=== PATIENT | female | born 1985 | race Two or more races ===

== ENCOUNTER 2022-03-13 17:28 | Emergency (ER) | payer OTHER ==
[~2022-03-13] VITALS: Ht 162.6 cm; Wt 139.3 kg
[2022-03-13] MEDS ORDERED: GLIPIZIDE XL2.5 MG PO (17:38)
== END 2022-03-13 22:00 | disposition home or self-care (01) ==
LOC: ER 17:28
DX: O20.9 Hemorrhage in early pregnancy, unspecified (principal); O24.811 Other pre-existing diabetes mellitus in pregnancy, first trimester; E13.9 Other specified diabetes mellitus without complications; Z79.84 Long term (current) use of oral hypoglycemic drugs; Z3A.01 Less than 8 weeks gestation of pregnancy

== ENCOUNTER 2022-03-15 13:23 | Outpatient (CLI) | payer OTHER ==
[~2022-03-15 13:23] MED LIST: GLIPIZIDE XL2.5 MG PO
[2022-03-16] MEDS ORDERED: HUMULIN N100 UNIT/2 SUBCUTANEO (13:44)
[2022-03-16] MEDS ORDERED: HUMULIN R100 UNIT/1 SUBCUTANEO (13:46)
[2022-03-16] MEDS ORDERED: INSULIN SYRING1 EA29 SUBCUTANEO (13:46)
[2022-03-16] MEDS ORDERED: ALCOHOL PADS1 EACH TOP (13:47)
== END 2022-03-15 14:43 | disposition home or self-care (01) ==
LOC: PRENATAL 13:23
PROVIDERS: ATTEND Obstetrics & Gynecology Maternal & Fetal Medicine
DX: O99.891 Other specified diseases and conditions complicating pregnancy (principal); O24.319 Unspecified pre-existing diabetes mellitus in pregnancy, unspecified trimester; Z3A.00 Weeks of gestation of pregnancy not specified

== ENCOUNTER 2022-03-16 09:12 | Emergency (ER) | payer OTHER ==
[~2022-03-16] VITALS: Ht 162.6 cm; Wt 139.3 kg
[2022-03-16] MEDS ORDERED: HUMULIN N100 UNIT/2 SUBCUTANEO (13:44)
[2022-03-16] MEDS ORDERED: INSULIN SYRING1 EA29 SUBCUTANEO (13:46)
[2022-03-16] MEDS ORDERED: HUMULIN R100 UNIT/1 SUBCUTANEO (13:46)
[2022-03-16] MEDS ORDERED: ALCOHOL PADS1 EACH TOP (13:47)
== END 2022-03-16 15:29 | disposition home or self-care (01) ==
LOC: ER 09:12
DX: O20.8 Other hemorrhage in early pregnancy (principal); O24.414 Gestational diabetes mellitus in pregnancy, insulin controlled; Z3A.00 Weeks of gestation of pregnancy not specified

== ENCOUNTER 2022-04-21 14:28 | Outpatient (CLI) | payer OTHER ==
[~2022-04-21 14:28] MED LIST changes: +ALCOHOL PADS1 EACH TOP; +HUMULIN N100 UNIT/2 SUBCUTANEO; +HUMULIN R100 UNIT/1 SUBCUTANEO; +INSULIN SYRING1 EA29 SUBCUTANEO
== END 2022-04-21 15:50 | disposition home or self-care (01) ==
LOC: PRENATAL 14:28
PROVIDERS: ATTEND Obstetrics & Gynecology Maternal & Fetal Medicine
DX: O36.80X0 Pregnancy with inconclusive fetal viability, not applicable or unspecified (principal); O09.529 Supervision of elderly multigravida, unspecified trimester; O24.319 Unspecified pre-existing diabetes mellitus in pregnancy, unspecified trimester; O10.019 Pre-existing essential hypertension complicating pregnancy, unspecified trimester; O99.210 Obesity complicating pregnancy, unspecified trimester; O34.219 Maternal care for unspecified type scar from previous cesarean delivery; Z3A.12 12 weeks gestation of pregnancy

== ENCOUNTER 2022-06-23 12:43 | Outpatient (CLI) | payer OTHER | END 2022-06-23 14:37 | disposition home or self-care (01) | LOC: PRENATAL 12:43 | DX: O35.0XX0 Maternal care for (suspected) central nervous system malformation in fetus, not applicable or unspecified (principal); O35.3XX0 Maternal care for (suspected) damage to fetus from viral disease in mother, not applicable or unspecified; O09.529 Supervision of elderly multigravida, unspecified trimester; O24.319 Unspecified pre-existing diabetes mellitus in pregnancy, unspecified trimester; O10.019 Pre-existing essential hypertension complicating pregnancy, unspecified trimester; O99.210 Obesity complicating pregnancy, unspecified trimester; O34.219 Maternal care for unspecified type scar from previous cesarean delivery; Z3A.21 21 weeks gestation of pregnancy ==

== ENCOUNTER 2022-08-09 09:44 | Outpatient (CLI) | payer OTHER | END 2022-08-09 11:15 | disposition home or self-care (01) | LOC: PRENATAL 09:44 | PROVIDERS: ATTEND Obstetrics & Gynecology Maternal & Fetal Medicine | DX: O26.849 Uterine size-date discrepancy, unspecified trimester (principal); O09.529 Supervision of elderly multigravida, unspecified trimester; O24.319 Unspecified pre-existing diabetes mellitus in pregnancy, unspecified trimester; O10.019 Pre-existing essential hypertension complicating pregnancy, unspecified trimester; O99.210 Obesity complicating pregnancy, unspecified trimester; O34.219 Maternal care for unspecified type scar from previous cesarean delivery; Z3A.28 28 weeks gestation of pregnancy ==

== ENCOUNTER 2022-10-04 09:22 | Outpatient (CLI) | payer OTHER | END 2022-10-04 11:22 | disposition home or self-care (01) | LOC: PRENATAL 09:22 | PROVIDERS: ATTEND Obstetrics & Gynecology Maternal & Fetal Medicine | DX: O26.849 Uterine size-date discrepancy, unspecified trimester (principal); O09.529 Supervision of elderly multigravida, unspecified trimester; O24.319 Unspecified pre-existing diabetes mellitus in pregnancy, unspecified trimester; O10.019 Pre-existing essential hypertension complicating pregnancy, unspecified trimester; O99.210 Obesity complicating pregnancy, unspecified trimester; O34.219 Maternal care for unspecified type scar from previous cesarean delivery; Z3A.36 36 weeks gestation of pregnancy ==

== ENCOUNTER 2022-10-04 12:02 | Inpatient (IN) | payer OTHER ==
[~2022-10-04] VITALS: Ht 162.6 cm; Wt 152.4 kg
== END 2022-10-06 15:21 | disposition home or self-care (01) | DRG 788 ==
LOC: LDR 12:02 → SURH 12:02
PROVIDERS: ADMIT Obstetrics & Gynecology; ATTEND Obstetrics & Gynecology
PROC: 4A1HXCZ Monitoring of Products of Conception, Cardiac Rate, External Approach (ICD-10-PCS; 2022-10-04)
PROC: 10D00Z1 Extraction of Products of Conception, Low, Open Approach (ICD-10-PCS; principal; 2022-10-04 20:45)
DX: O36.4XX0 Maternal care for intrauterine death, not applicable or unspecified (principal); O99.824 Streptococcus B carrier state complicating childbirth; O36.63X0 Maternal care for excessive fetal growth, third trimester, not applicable or unspecified; O34.211 Maternal care for low transverse scar from previous cesarean delivery; Z3A.36 36 weeks gestation of pregnancy; Z37.1 Single stillbirth; Z20.822 Contact with and (suspected) exposure to COVID-19